=== PATIENT | female | born 1985 | race Caucasian/White ===

== ENCOUNTER 2017-03-05 00:04 | Emergency (ER) | payer OTHER ==
[2017-03-05] MEDS ORDERED: predniSONE 50 MG TAB PO STA (00:18)
[2017-03-05] MEDS ORDERED: FAMOTIDINE 20 MG TAB PO STA (00:18)
--- NOTE | 2017-03-05 00:33 | ED ---
General Adult HPI - General Chief complaint: ENT Stated complaint: throat swelling Time Seen by Provider: 03/05/17 00:12 Source: patient, RN notes reviewed Mode of arrival: ambulatory Limitations: no limitations - History of Present Illness Initial comments: 31-year-old female presents to the emergency department with a chief complaint of some throat irritation and swelling. Patient took vitamin D tablets for the first time tonight and a few hours later she started to notice some throat discomfort. She states that it felt kind of swollen and her lips were swollen. Patient states she took 2 Benadryl has helped but she has continued to have the swelling. She states that her symptoms have improved but she just wanted make sure everything was okay. This is a vitamin D tablets today she has not had any other symptoms. There is been no fever chills no cough cold runny nose. She states she is no longer having difficulty breathing. Patient denies any recent fever, chills, shortness of breath, chest pain, back pain, abdominal pain, nausea vomiting, numbness or tingling, dysuria or hematuria, constipation or diarrhea, headaches or visual changes, or any other current symptoms. - Related Data Previous Rx's Medication Instructions Recorded Famotidine [Pepcid] 20 mg PO BID #10 tablet 03/05/17 diphenhydrAMINE [Benadryl] 50 mg PO HS PRN #5 capsule 03/05/17 predniSONE 50 mg PO DAILY #5 tab 03/05/17 Allergies Allergy/AdvReac Type Severity Reaction Status Date / Time No Known Allergies Allergy Verified 03/05/17 00:08 Review of Systems ROS Statement: Those systems with pertinent positive or pertinent negative responses have been documented in the HPI. ROS Other: All systems not noted in ROS Statement are negative. Past Medical History Past Medical History: No Reported History History of Any Multi-Drug Resistant Organisms: None Reported Past Surgical History: No Surgical Hx Reported Past Psychological History: No Psychological Hx Reported Smoking Status: Never smoker Past Alcohol Use History: None Reported Past Drug Use History: None Reported General Exam Limitations: no limitations General appearance: alert, in no apparent distress Eye exam: Present: normal appearance, PERRL, EOMI. Absent: scleral icterus, conjunctival injection, periorbital swelling ENT exam: Present: normal exam, mucous membranes moist Neck exam: Present: normal inspection. Absent: tenderness, meningismus, lymphadenopathy Respiratory exam: Present: normal lung sounds bilaterally. Absent: respiratory distress, wheezes, rales, rhonchi, stridor Cardiovascular Exam: Present: regular rate, normal rhythm, normal heart sounds. Absent: systolic murmur, diastolic murmur, rubs, gallop, clicks Neurological exam: Present: alert, oriented X3 Psychiatric exam: Present: normal affect, normal mood Skin exam: Present: warm, dry, intact, normal color. Absent: rash Course Vital Signs 03/05/17 00:05 Temperature 98.2 F Pulse Rate 105 H Respiratory 20 Rate Blood Pressure 145/89 O2 Sat by Pulse 99 Oximetry Medical Decision Making - Medical Decision Making 31-year-old female presents emergency department with a chief complaint of ALLERGIC reaction. This and we'll start her on steroids and Pepcid for home along with the Benadryl. We discussed close follow-up with her doctor return parameters and not taking vitamin D anymore and with pain for other possible sources. We did discuss outpatient family's questions. He stated the [place] management this plan. All questions have been answered. They will be discharged. Disposition Clinical Impression: Allergic reaction Disposition: HOME SELF-CARE Condition: Stable Instructions: Anaphylaxis (ED) Additional Instructions: Please use medication as discussed. Please follow up with family doctor if symptoms have not improved over the next two days. Please return to the emergency room if your symptoms increase or worsen or for any other concerns. Prescriptions: diphenhydrAMINE [Benadryl] 50 mg PO HS PRN #5 capsule PRN Reason: Itching Famotidine [Pepcid] 20 mg PO BID #10 tablet predniSONE 50 mg PO DAILY #5 tab Referrals: Mannie Thayer MD [Primary Care Provider] - 1-2 days Time of Disposition: 01:09
[2017-03-05 01:12] VITALS: BP 128/92; PULSE 72; RESP 18; TEMP 99
== END 2017-03-05 01:12 | disposition home or self-care (01) ==
LOC: EC 00:04
DX: T78.40XA Allergy, unspecified, initial encounter (principal)
CPT/HCPCS: 99283; J7512

== ENCOUNTER → 2017-06-13 | Outpatient (CLI) | payer OTHER ==
--- NOTE | 2017-06-13 10:11 | USB ---
Reason for exam: clinical finding. Physical Findings: Nurse Summary: patient felt lump 1 week ago (nurse kp). US Breast RT Right breast ultrasound includes all four quadrants, the retroareolar region and axilla. Finding demonstrates dense tissue seen at BB area. These results were verbally communicated with the patient and result sheet given to the patient on 06/13/17. ASSESSMENT: Negative, BI-RAD 1 RECOMMENDATION: Routine screening mammogram of both breasts at age 42. Manage patient on a clinical basis.
== END | disposition home or self-care (01) ==
LOC: RADUSWWP 08:48
PROVIDERS: ATTEND Family Medicine
DX: N63.10 Unspecified lump in the right breast, unspecified quadrant (principal)

== ENCOUNTER 2017-06-25 22:06 | Emergency (ER) | payer OTHER ==
--- NOTE | 2017-06-25 22:42 | ED ---
General Adult HPI - General Chief complaint: Chest Pain Stated complaint: chest pain Time Seen by Provider: 06/25/17 22:27 Source: patient, family, RN notes reviewed Mode of arrival: ambulatory Limitations: no limitations - History of Present Illness Initial comments: 31-year-old female presents with chief complaint of chest pain. Pain began approximately 2 hours prior to arrival. It is subsided currently. Denies pain as an ache, in her left posterior chest, no central chest pain. Patient does state there was some associated dyspnea with this and left arm pain. Patient has no significant past medical history. She is accompanied by her grandfather who gives additional history that the patient has had significant amount of stress including loss of a family member and car travel today. She denies any lower extremity pain or swelling. Denies fever or chills. No history of coronary artery disease or DVT PE. - Related Data Home Medications Medication Instructions Recorded Confirmed Travoprost [Travatan Z 0.004%] 1 drop BOTH EYES HS 06/25/17 06/25/17 Allergies Allergy/AdvReac Type Severity Reaction Status Date / Time No Known Allergies Allergy Verified 06/25/17 22:32 Review of Systems ROS Statement: Those systems with pertinent positive or pertinent negative responses have been documented in the HPI. ROS Other: All systems not noted in ROS Statement are negative. Past Medical History Past Medical History: No Reported History History of Any Multi-Drug Resistant Organisms: None Reported Past Surgical History: No Surgical Hx Reported Past Psychological History: No Psychological Hx Reported Smoking Status: Never smoker Past Alcohol Use History: None Reported Past Drug Use History: None Reported General Exam Limitations: no limitations General appearance: alert, in no apparent distress Head exam: Present: atraumatic, normocephalic Eye exam: Present: normal appearance, PERRL, EOMI ENT exam: Present: normal exam Neck exam: Present: normal inspection. Absent: tenderness, meningismus Respiratory exam: Present: normal lung sounds bilaterally. Absent: respiratory distress, wheezes, rales Cardiovascular Exam: Present: regular rate, normal rhythm GI/Abdominal exam: Present: soft. Absent: distended, tenderness Extremities exam: Present: normal inspection, normal capillary refill. Absent: pedal edema, calf tenderness Neurological exam: Present: alert, oriented X3, CN II-XII intact. Absent: motor sensory deficit Psychiatric exam: Present: normal affect, normal mood Skin exam: Present: warm, dry, intact. Absent: cyanosis, diaphoretic Course Vital Signs 06/25/17 22:18 Temperature 98.4 F Pulse Rate 102 H Respiratory 20 Rate Blood Pressure 134/90 O2 Sat by Pulse 99 Oximetry EKG Findings - EKG Comments: EKG Findings:: EKG shows normal sinus rhythm, ventricular rate 88, NH interval 134, QRS duration 84, QTC 440, no signs of ischemia Medical Decision Making - Medical Decision Making 31-year-old female presenting with left posterior chest pain. Pain is atypical , dull and aching. EKG nonischemic, normal sinus. Chest x-ray obtained, negative for pneumonia or pneumothorax. Laboratory studies do reveal mild elevation in white blood cell count at 14.5 which the patient states she has had in the past and her primary care physician is aware of. Hemoglobin stable. D-dimer negative. Potassium 3.3 which is replaced. Patient does feel this is likely secondary to anxiety and panic attack. She has a normal physical exam with stable vitals, normal pulse exam. On reevaluation, pain is nearly resolved without treatment in the emergency department. She will follow-up with her primary care physician regarding lab abnormalities. She will return with worsening or changing symptoms. - Lab Data Result diagrams: 06/25/17 23:03 06/25/17 23:03 Lab Results 06/25/17 06/25/17 06/25/17 Range/Units 23:03 23:03 23:03 WBC 14.5 H (3.8-10.6) k/uL RBC 4.23 (3.80-5.40) m/uL Hgb 12.7 (11.4-16.0) gm/dL Hct 36.9 (34.0-46.0) % MCV 87.2 (80.0-100.0) fL MCH 29.9 (25.0-35.0) pg MCHC 34.3 (31.0-37.0) g/dL RDW 12.4 (11.5-15.5) % Plt Count 352 (150-450) k/uL Neutrophils % 78 % Lymphocytes % 15 % Monocytes % 5 % Eosinophils % 2 % Basophils % 0 % Neutrophils # 11.3 H (1.3-7.7) k/uL Lymphocytes # 2.2 (1.0-4.8) k/uL Monocytes # 0.7 (0-1.0) k/uL Eosinophils # 0.3 (0-0.7) k/uL Basophils # 0.1 (0-0.2) k/uL PT (9.0-12.0) sec INR (<1.2) APTT (22.0-30.0) sec D-Dimer (<0.60) mg/L FEU Sodium 140 (137-145) mmol/L Potassium 3.3 L (3.5-5.1) mmol/L Chloride 103 (98-107) mmol/L Carbon Dioxide 27 (22-30) mmol/L Anion Gap 10 mmol/L BUN 12 (7-17) mg/dL Creatinine 0.60 (0.52-1.04) mg/dL Est GFR (CKD-EPI)AfAm >90 (>60 ml/min/1.73 sqM) Est GFR (CKD-EPI)NonAf >90 (>60 ml/min/1.73 sqM) Glucose 175 H (74-99) mg/dL Calcium 9.8 (8.4-10.2) mg/dL Magnesium 2.1 (1.6-2.3) mg/dL Total Bilirubin 0.4 (0.2-1.3) mg/dL AST 20 (14-36) U/L ALT 16 (9-52) U/L Alkaline Phosphatase 69 (38-126) U/L Total Creatine Kinase 42 (30-135) U/L CK-MB (CK-2) <0.2 (0.0-2.4) ng/mL CK-MB (CK-2) Rel Index Troponin I <0.012 (0.000-0.034) ng/mL Total Protein 7.0 (6.3-8.2) g/dL Albumin 4.0 (3.5-5.0) g/dL 06/25/17 Range/Units 23:03 WBC (3.8-10.6) k/uL RBC (3.80-5.40) m/uL Hgb (11.4-16.0) gm/dL Hct (34.0-46.0) % MCV (80.0-100.0) fL MCH (25.0-35.0) pg MCHC (31.0-37.0) g/dL RDW (11.5-15.5) % Plt Count (150-450) k/uL Neutrophils % % Lymphocytes % % Monocytes % % Eosinophils % % Basophils % % Neutrophils # (1.3-7.7) k/uL Lymphocytes # (1.0-4.8) k/uL Monocytes # (0-1.0) k/uL Eosinophils # (0-0.7) k/uL Basophils # (0-0.2) k/uL PT 10.0 (9.0-12.0) sec INR 1.0 (<1.2) APTT 24.5 (22.0-30.0) sec D-Dimer 0.30 (<0.60) mg/L FEU Sodium (137-145) mmol/L Potassium (3.5-5.1) mmol/L Chloride (98-107) mmol/L Carbon Dioxide (22-30) mmol/L Anion Gap mmol/L BUN (7-17) mg/dL Creatinine (0.52-1.04) mg/dL Est GFR (CKD-EPI)AfAm (>60 ml/min/1.73 sqM) Est GFR (CKD-EPI)NonAf (>60 ml/min/1.73 sqM) Glucose (74-99) mg/dL Calcium (8.4-10.2) mg/dL Magnesium (1.6-2.3) mg/dL Total Bilirubin (0.2-1.3) mg/dL AST (14-36) U/L ALT (9-52) U/L Alkaline Phosphatase (38-126) U/L Total Creatine Kinase (30-135) U/L CK-MB (CK-2) (0.0-2.4) ng/mL CK-MB (CK-2) Rel Index Troponin I (0.000-0.034) ng/mL Total Protein (6.3-8.2) g/dL Albumin (3.5-5.0) g/dL Disposition Clinical Impression: Panic attack, Chest pain Disposition: HOME SELF-CARE Condition: Good Instructions: Chest Pain (ED), Panic Attack (ED) Referrals: Mannie Thayer MD [Primary Care Provider] - 1-2 days Time of Disposition: 00:16
[2017-06-25 23:13] LABS: Basophils # (A) 0.1 k/uL (0-0.2); Basophils % (A) 0 %; Eosinophils # (A) 0.3 k/uL (0-0.7); Eosinophils % (A) 2 %; HCT 36.9 % (34.0-46.0); HGB 12.7 gm/dL (11.4-16.0); Lymphocytes # (A) 2.2 k/uL (1.0-4.8); Lymphocytes % (A) 15 %; MCH 29.9 pg (25.0-35.0); MCHC 34.3 g/dL (31.0-37.0); MCV 87.2 fL (80.0-100.0); Mean Platelet Volume 7.7; Monocytes # (A) 0.7 k/uL (0-1.0); Monocytes % (A) 5 %; Neutrophils # (A) 11.3 k/uL (1.3-7.7); Neutrophils % (A) 78 %; Platelet Count 352 k/uL (150-450); RBC 4.23 m/uL (3.80-5.40); RDW 12.4 % (11.5-15.5); WBC 14.5 k/uL (3.8-10.6)
[2017-06-25 23:22] LABS: D-Dimer 0.3 mg/L FEU (<0.60)
[2017-06-25 23:26] LABS: ALT 16 U/L (9-52); AST 20 U/L (14-36); Alkaline Phosphatase 69 U/L (38-126); Anion Gap 10 mmol/L; Blood Urea Nitrogen 12 mg/dL (7-17); Calcium 9.8 mg/dL (8.4-10.2); Carbon Dioxide 27 mmol/L (22-30); Chloride 103 mmol/L (98-107); Glucose 175 mg/dL (74-99); Magnesium 2.1 mg/dL (1.6-2.3); Potassium 3.3 mmol/L (3.5-5.1); Sodium 140 mmol/L (137-145); Total Bilirubin 0.4 mg/dL (0.2-1.3)
[2017-06-25 23:28] LABS: Partial Thromboplastin Time 24.5 sec (22.0-30.0)
[2017-06-25 23:36] LABS: Creatine Kinase 42 U/L (30-135)
[2017-06-25] MEDS ORDERED: POTASSIUM CHLORIDE ER 20 MEQ TAB.ER PO STA (23:40)
--- NOTE | 2017-06-25 23:48 | XR ---
EXAMINATION TYPE: XR chest 2V DATE OF EXAM: 06/25/2017 COMPARISON: 04/16/2012 HISTORY: Chest pain TECHNIQUE: Frontal and lateral views of the chest are obtained. FINDINGS: Heart and mediastinum are normal. Lungs are clear. Diaphragm is normal. Bony thorax appear s normal. There are chest leads. IMPRESSION: Normal chest. No change.
[2017-06-25 23:49] LABS: Creatine Kinase MB <0.2 ng/mL (0.0-2.4); Troponin I <0.012 ng/mL (0.000-0.034)
[2017-06-26 00:18] VITALS: BP 146/91; PULSE 84; RESP 18
[2017-06-26 00:27] VITALS: TEMP 98
== END 2017-06-26 00:27 | disposition home or self-care (01) ==
LOC: EC 22:06
DX: F41.0 Panic disorder [episodic paroxysmal anxiety] (principal); D72.829 Elevated white blood cell count, unspecified; R07.89 Other chest pain; M79.602 Pain in left arm; R06.00 Dyspnea, unspecified; Z79.899 Other long term (current) drug therapy; Z63.32 Other absence of family member
CPT/HCPCS: 36415; 71046; 80053; 82550; 82553; 83735; 84484; 85025; 85379; 85610; 85730; 93005; 99285

== ENCOUNTER 2022-07-17 21:14 | Emergency (ER) | payer OTHER ==
--- NOTE | 2022-07-17 22:35 | ED ---
General Adult HPI - General Source: patient, RN notes reviewed Mode of arrival: ambulatory Limitations: no limitations <Mary Jane Diaz - Last Filed: 07/17/22 22:34> - General Source: patient, RN notes reviewed Mode of arrival: ambulatory Limitations: no limitations <Kentrell Clark - Last Filed: 07/18/22 00:36> - General Chief complaint: Abdominal Pain Stated complaint: abd pain, burning Time Seen by Provider: 07/17/22 22:34 - History of Present Illness Initial comments: 36-year-old female with no significant past medical history presents the emergency department with a chief complaint of lower abdominal pain times one day. She also reports accompanying symptoms of nausea and vomiting. She also reports feeling like she is dizzy. (Mary Jane Diaz) 36-year-old female presents emergency Department chief complaint of nausea vomiting diarrhea. Patient states she has some mild abdominal discomfort, cramping. Symptoms started over the last 4 hours. She denies any sick contacts. Patient states she felt lightheaded that has resolved. Patient state s she's felt like she's had a fever complains of chills. Denies any prior abdominal surgeries denies any chance . (Kentrell Clark) - Related Data Home Medications Medication Instructions Recorded Confirmed Travoprost [Travatan Z 0.004%] 1 drop BOTH EYES HS 06/25/17 06/25/17 Previous Rx's Medication Instructions Recorded Ondansetron Odt [Zofran Odt] 4 mg PO Q8HR PRN #10 tab 07/18/22 Allergies Allergy/AdvReac Type Severity Reaction Status Date / Time No Known Allergies Allergy Verified 07/17/22 21:42 Review of Systems ROS Other: All systems not noted in ROS Statement are negative. <Mary Jane Diaz - Last Filed: 07/17/22 22:34> ROS Other: All systems not noted in ROS Statement are negative. <Kentrell Clark - Last Filed: 07/18/22 00:36> ROS Statement: Those systems with pertinent positive or pertinent negative responses have been documented in the HPI. Past Medical History Past Medical History: No Reported History History of Any Multi-Drug Resistant Organisms: None Reported Past Surgical History: No Surgical Hx Reported Past Psychological History: No Psychological Hx Reported Smoking Status: Never smoker Past Alcohol Use History: None Reported Past Drug Use History: None Reported <Mary Jane Diaz - Last Filed: 07/17/22 22:34> General Exam Limitations: no limitations <Mary Jane Diaz - Last Filed: 07/17/22 22:34> General appearance: alert, in no apparent distress Head exam: Present: atraumatic, normocephalic, normal inspection Neck exam: Present: normal inspection. Absent: tenderness, meningismus, lymphadenopathy Respiratory exam: Present: normal lung sounds bilaterally. Absent: respiratory distress, wheezes, rales, rhonchi, stridor Cardiovascular Exam: Present: normal rhythm, tachycardia, normal heart sounds. Absent: systolic murmur, diastolic murmur, rubs, gallop, clicks GI/Abdominal exam: Present: soft, normal bowel sounds. Absent: distended, tenderness, guarding, rebound, rigid Back exam: Absent: CVA tenderness (R), CVA tenderness (L) Neurological exam: Present: alert Skin exam: Present: warm, dry, intact, normal color. Absent: rash <Kentrell Clark - Last Filed: 07/18/22 00:36> - General Exam Comments Initial Comments: Visual Physical Exam Vital signs reviewed General: Well-appearing, nontoxic, no acute distress. Head: Normocephalic, atraumatic Eyes: PERRLA, EOMI ENT: Airway patent Chest: Nonlabored breathing Skin: No visual rash, normal skin tone Neuro: Alert and oriented 3 Musculoskeletal: No gross abnormalities (JimyjonathanMary Jane turner) Course Vital Signs 07/17/22 21:40 Temperature 99.4 F Pulse Rate 113 H Respiratory 20 Rate Blood Pressure 139/99 O2 Sat by Pulse 99 Oximetry Medical Decision Making - Lab Data Result diagrams: 07/17/22 22:58 07/17/22 22:58 <Kentrell Clark - Last Filed: 07/18/22 00:36> - Medical Decision Making Was pt. sent in by a medical professional or institution ([facility], [facility]ER, urgent care, hospital, or correction...) When possible be specific @ -No Did you speak to anyone other than the patient for history (EMS, parent, family, police, friend...)? What history was obtained from this source @ -No Did you review nursing and triage notes (agree or disagree)? Why? @ -I reviewed and agree with nursing and triage notes Were old charts reviewed (outside hosp., previous admission, EMS record, old EKG, old radiological studies, urgent care reports/EKG's, correction records)? Report findings @ -No old charts were reviewed Differential Diagnosis (chest pain, altered mental status, abdominal pain women, abdominal pain men, vaginal bleeding, weakness, fever, dyspnea, syncope, headache, dizziness, GI bleed, back pain, seizure, CVA, palpatations, mental health, musculoskeletal)? @ -Differential Abdominal Pain Women: Appendicitis, Cholecystitis, diverticulosis, ischemic bowel, pancreatitis, hepatitis, UTI, gastroenteritis, AAA, incarcerated hernia, bowel obstruction, constipation, inflammatory bowel, hepatitis, peptic ulcer disease, splenic infarction, perforated viscus, vulvitis, ovarian torsion, PID, kidney stone, placenta abruption, this is not meant to be an all-inclusive listble EKG interpreted by me (3pts min.). @ -None X-rays interpreted by me (1pt min.). @ -None done CT interpreted by me (1pt min.). @ -None done U/S interpreted by me (1pt. min.). @ -None done What testing was considered but not performed or refused? (CT, X-rays, U/S, labs)? Why? @ -None What meds were considered but not given or refused? Why? @ -None Did you discuss the management of the patient with other professionals (professionals i.e. , PA, HAT BLOCKER, lab, RT, psych nurse, social media sr strategy manager, insurance verification clerk, teacher, neighborhood conservation officer, case monitor)? Give summary @ -No Was smoking cessation discussed for >3mins.? @ -No Was critical care preformed (if so, how long)? @ -No Were there social determinants of health that impacted care today? How? (Homelessness, low income, unemployed, alcoholism, drug addiction, transportation, low edu. Level, literacy, decrease access to med. care, halfway, rehab)? @ -No Was there de-escalation of care discussed even if they declined (Discuss DNR or withdrawal of care, Hospice)? DNR status @ -No What co-morbidities impacted this encounter? (DM, HTN, Smoking, COPD, CAD, Cancer, CVA, ARF, Chemo, Hep., AIDS, mental health diagnosis, sleep apnea, morbid obesity)? @ -None Was patient admitted / discharged? Hospital course, mention meds given and route, prescriptions, significant lab abnormalities, going to OR and other pertinent info. @ -Discharge patient feels improved IV fluids, antiemetics. Patient's laboratory studies essentially unremarkable. Patient be discharged in stable condition with close follow-up patient discharged with Zofran. Undiagnosed new problem with uncertain prognosis? @ -No Drug Therapy requiring intensive monitoring for toxicity (Heparin, Nitro, Insulin, Cardizem)? @ -No Were any procedures done? @ -No Diagnosis/symptom? @ -Gastroenteritis Acute, or Chronic, or Acute on Chronic? @ -Acute Uncomplicated (without systemic symptoms) or Complicated (systemic symptoms)? @ -Uncomplicated Side effects of treatment? @ -No Exacerbation, Progression, or Severe Exacerbation? @ -No Poses a threat to life or bodily function? How? (Chest pain, [place], MA, pneumonia, PE, COPD, DKA, ARF, appy, cholecystitis, CVA, Diverticulitis, Homicidal, Suicidal, threat to staff... and all critical care pts) @ -No (Kentrell Clark) - Lab Data Lab Results 07/17/22 07/17/22 07/17/22 Range/Units 22:58 22:58 22:58 WBC 10.5 (3.8-10.6) k/uL RBC 4.64 (3.80-5.40) m/uL Hgb 14.0 (11.4-16.0) gm/dL Hct 41.4 (34.0-46.0) % MCV 89.3 (80.0-100.0) fL MCH 30.2 (25.0-35.0) pg MCHC 33.8 (31.0-37.0) g/dL RDW 12.5 (11.5-15.5) % Plt Count 355 (150-450) k/uL MPV 7.3 Neutrophils % 71 % Lymphocytes % 18 % Monocytes % 7 % Eosinophils % 2 % Basophils % 1 % Neutrophils # 7.4 (1.3-7.7) k/uL Lymphocytes # 1.9 (1.0-4.8) k/uL Monocytes # 0.7 (0-1.0) k/uL Eosinophils # 0.3 (0-0.7) k/uL Basophils # 0.1 (0-0.2) k/uL Sodium 137 (137-145) mmol/L Potassium 4.1 (3.5-5.1) mmol/L Chloride 104 (98-107) mmol/L Carbon Dioxide 24 (22-30) mmol/L Anion Gap 9 mmol/L BUN 11 (7-17) mg/dL Creatinine 0.60 (0.52-1.04) mg/dL Est GFR (CKD-EPI)AfAm >90 (>60 ml/min/1.73 sqM) Est GFR (CKD-EPI)NonAf >90 (>60 ml/min/1.73 sqM) Glucose 78 (74-99) mg/dL Calcium 8.8 (8.4-10.2) mg/dL Total Bilirubin 0.5 (0.2-1.3) mg/dL AST 27 (14-36) U/L ALT 20 (4-34) U/L Alkaline Phosphatase 78 (38-126) U/L Total Protein 7.2 (6.3-8.2) g/dL Albumin 4.1 (3.5-5.0) g/dL Lipase 148 (23-300) U/L Urine Color Yellow Urine Appearance Cloudy H (Clear) Urine pH 6.5 (5.0-8.0) Ur Specific [place] 1.018 (1.001-1.035) Urine Protein Negative (Negative) Urine Glucose (UA) Negative (Negative) Urine Ketones Negative (Negative) Urine Blood Moderate H (Negative) Urine Nitrite Negative (Negative) Urine Bilirubin Negative (Negative) Urine Urobilinogen <2.0 (<2.0) mg/dL Ur Leukocyte Esterase Negative (Negative) Urine RBC 14 H (0-5) /hpf Urine WBC 2 (0-5) /hpf Ur Squamous Epith Cells 16 H (0-4) /hpf Calcium Oxalate Crystal Occasional H (None) /hpf Hyaline Casts 3 H (0-2) /lpf Urine Mucus Many H (None) /hpf Urine Yeast (Budding) Rare H (None) /hpf Urine HCG, Qual (Not Detectd) Coronavirus (PCR) (Not Detectd) 07/17/22 07/17/22 Range/Units 22:58 23:38 WBC (3.8-10.6) k/uL RBC (3.80-5.40) m/uL Hgb (11.4-16.0) gm/dL Hct (34.0-46.0) % MCV (80.0-100.0) fL MCH (25.0-35.0) pg MCHC (31.0-37.0) g/dL RDW (11.5-15.5) % Plt Count (150-450) k/uL MPV Neutrophils % % Lymphocytes % % Monocytes % % Eosinophils % % Basophils % % Neutrophils # (1.3-7.7) k/uL Lymphocytes # (1.0-4.8) k/uL Monocytes # (0-1.0) k/uL Eosinophils # (0-0.7) k/uL Basophils # (0-0.2) k/uL Sodium (137-145) mmol/L Potassium (3.5-5.1) mmol/L Chloride (98-107) mmol/L Carbon Dioxide (22-30) mmol/L Anion Gap mmol/L BUN (7-17) mg/dL Creatinine (0.52-1.04) mg/dL Est GFR (CKD-EPI)AfAm (>60 ml/min/1.73 sqM) Est GFR (CKD-EPI)NonAf (>60 ml/min/1.73 sqM) Glucose (74-99) mg/dL Calcium (8.4-10.2) mg/dL Total Bilirubin (0.2-1.3) mg/dL AST (14-36) U/L ALT (4-34) U/L Alkaline Phosphatase (38-126) U/L Total Protein (6.3-8.2) g/dL Albumin (3.5-5.0) g/dL Lipase (23-300) U/L Urine Color Urine Appearance (Clear) Urine pH (5.0-8.0) Ur Specific [place] (1.001-1.035) Urine Protein (Negative) Urine Glucose (UA) (Negative) Urine Ketones (Negative) Urine Blood (Negative) Urine Nitrite (Negative) Urine Bilirubin (Negative) Urine Urobilinogen (<2.0) mg/dL Ur Leukocyte Esterase (Negative) Urine RBC (0-5) /hpf Urine WBC (0-5) /hpf Ur Squamous Epith Cells (0-4) /hpf Calcium Oxalate Crystal (None) /hpf Hyaline Casts (0-2) /lpf Urine Mucus (None) /hpf Urine Yeast (Budding) (None) /hpf Urine HCG, Qual Not Detected (Not Detectd) Coronavirus (PCR) Not Detected (Not Detectd) Disposition <Mary Jane Diaz - Last Filed: 07/17/22 22:34> Is patient prescribed a controlled substance at d/c from ED?: No Time of Disposition: 00:30 <Kentrell Clark - Last Filed: 07/18/22 00:36> Clinical Impression: Gastroenteritis Disposition: HOME SELF-CARE Condition: Stable Instructions (If sedation given, give patient instructions): Gastroenteritis (ED) Additional Instructions: Please return to the Emergency Department if symptoms worsen or any other concerns. Prescriptions: Ondansetron Odt [Zofran Odt] 4 mg PO Q8HR PRN #10 tab PRN Reason: Nausea Referrals: Mannie Thayer MD [Primary Care Provider] - 1-2 days
[2022-07-17] MEDS ORDERED: ONDANSETRON 4 MG/2 ML VIAL IVP STA (23:28)
[2022-07-17] MEDS ORDERED: SODIUM CHLORIDE 0.9% 2,000 ML IV ONE (23:28)
[2022-07-17 23:39] LABS: Basophils # (A) 0.1 k/uL (0-0.2); Basophils % (A) 1 %; Eosinophils # (A) 0.3 k/uL (0-0.7); Eosinophils % (A) 2 %; HCT 41.4 % (34.0-46.0); Lymphocytes # (A) 1.9 k/uL (1.0-4.8); Lymphocytes % (A) 18 %; MCH 30.2 pg (25.0-35.0); MCHC 33.8 g/dL (31.0-37.0); MCV 89.3 fL (80.0-100.0); Mean Platelet Volume 7.3; Monocytes # (A) 0.7 k/uL (0-1.0); Monocytes % (A) 7 %; Neutrophils # (A) 7.4 k/uL (1.3-7.7); Neutrophils % (A) 71 %; Platelet Count 355 k/uL (150-450); RBC 4.64 m/uL (3.80-5.40); RDW 12.5 % (11.5-15.5); WBC 10.5 k/uL (3.8-10.6)
[2022-07-17 23:47] LABS: ALT 20 U/L (4-34); AST 27 U/L (14-36); African American GFR (CKD) >90 (>60 ml/min/1.73 sqM); Albumin 4.1 g/dL (3.5-5.0); Alkaline Phosphatase 78 U/L (38-126); Anion Gap 9 mmol/L; Blood Urea Nitrogen 11 mg/dL (7-17); Calcium 8.8 mg/dL (8.4-10.2); Carbon Dioxide 24 mmol/L (22-30); Chloride 104 mmol/L (98-107); Glucose 78 mg/dL (74-99); Lipase 148 U/L (23-300); Non-African American GFR(CKD) >90 (>60 ml/min/1.73 sqM); Potassium 4.1 mmol/L (3.5-5.1); Sodium 137 mmol/L (137-145); Total Bilirubin 0.5 mg/dL (0.2-1.3); Total Protein 7.2 g/dL (6.3-8.2)
[2022-07-18 00:01] LABS: Appearance,Urine Cloudy (Clear); Bilirubin,Urine Negative (Negative); Blood,Urine Moderate (Negative); Budding Yeast,Urine Rare /hpf; Calcium Oxalate Crystals,Urine Occasional /hpf; Color,Urine Yellow; Glucose,Urine (UA) Negative (Negative); Hyaline Casts,Urine 3 /lpf (0-2); Ketones,Urine Negative (Negative); Leukocyte Esterase,Urine Negative (Negative); Mucus,Urine Many /hpf; Nitrite,Urine Negative (Negative); PH, Urine 6.5 (5.0-8.0); Protein,Urine Negative (Negative); RBC,Urine 14 /hpf (0-5); Specific Gravity,Urine 1.018 (1.001-1.035); Squamous Epithelial Cell,Urine 16 /hpf (0-4); Urobilinogen,Urine <2.0 mg/dL (<2.0); WBC,Urine 2 /hpf (0-5)
[2022-07-18] MEDS ORDERED: ONDANSETRON 4 MG ODT STARTER PACK 2 TAB BTL PO STA (00:26)
[2022-07-18 00:47] VITALS: BP 143/89; PULSE 90; RESP 18; TEMP 98.2
== END 2022-07-18 00:52 | disposition home or self-care (01) ==
LOC: EC 21:14
DX: K52.9 Noninfective gastroenteritis and colitis, unspecified (principal); Z20.822 Contact with and (suspected) exposure to COVID-19
CPT/HCPCS: 99284; 36415; 93005; 80053; 83690; 85025; 81025; 87635; 96374; 96361; J2405; 81001